=== PATIENT | female | born 1965 | race Caucasian/White ===

== ENCOUNTER 2018-09-07 08:13 | Day surgery (SDC) | payer OTHER ==
[~2018-09-07] VITALS: Ht 167.6 cm; Wt 83.6 kg
--- NOTE | 2018-09-07 08:30 | NUR ---
09/07/18 0830 Jing Flores 1ST IV ATTEMPT RH HAND ORSC.BRIAN. PT TOW.
== END 2018-09-07 09:35 | disposition home or self-care (01) ==
LOC: ORSCSDS 08:13
PROVIDERS: Surgery
PROC: 0DBL8ZX Excision of Transverse Colon, Via Natural or Artificial Opening Endoscopic, Diagnostic (ICD-10-PCS; principal; 2018-09-07 09:15)
DX: Z12.11 Encounter for screening for malignant neoplasm of colon (principal); D12.3 Benign neoplasm of transverse colon; K64.8 Other hemorrhoids; K57.30 Diverticulosis of large intestine without perforation or abscess without bleeding
CPT/HCPCS: 88305; J2704; J7120

== ENCOUNTER 2020-12-24 09:57 | Day surgery (SDC) | payer OTHER | END 2020-12-24 23:00 | disposition home or self-care (01) | LOC: MOI US 09:57 → MOI MAM 10:15 → EDSTATUS 10:15 → MOI US 23:00 → MOI MAM 01-09 10:00 | DX: N60.82 Other benign mammary dysplasias of left breast (principal) | CPT/HCPCS: 19083; 77065; 88305; A4648 ==